=== PATIENT | male | born 1935 | race Two or more races ===

== ENCOUNTER 2018-09-01 17:10 | Inpatient (IN) | payer MEDICARE, MEDICAID ==
[~2018-09-01] VITALS: Ht 172.7 cm; Wt 42.6 kg
[2018-09-01] MEDS ORDERED: SODIUM CHLORIDE 0.9% 1,000 ML IV ONE (17:44)
[2018-09-01 18:47] LABS: CHLORIDE 110 mEq/L (98-107)
[2018-09-01 18:48] LABS: PROTHROMBIN TIME 10.7 sec (9.6-11.0)
[2018-09-01 18:50] LABS: BASOPHILS % 0.1 % (0.0-2.0); EOSINOPHILS % 0.3 % (0.0-5.0); HEMOGLOBIN. 11.3 g/dL (14.0-18.0); LYMPHOCYTES % 16.4 % (20.0-50.0); MEAN CORPUSCULAR HEMOGLOBIN 28.2 pg (28.0-32.0); MEAN CORPUSCULAR VOLUME 85.2 fL (80.0-94.0); MEAN PLATELET VOLUME 8.6 fl (7.4-10.4); MONOCYTES % 9.2 % (2.0-8.0); PLATELET 319 x1000/uL (130-400); RED BLOOD CELL COUNT 3.99 mill/uL (4.7-6.1); RED CELL DISTRIBUTION WIDTH 16.1 % (11.6-14.6)
[2018-09-01] MEDS ORDERED: VANCOMYCIN 1 G PREMIX 200 ML IV NR (19:15)
[2018-09-01] MEDS ORDERED: SODIUM CHLORIDE 0.9% 1000ML BAG (SEPSIS BOLUS) IV NR (19:15)
[2018-09-01] MEDS ORDERED: PIPERACILLIN/TAZ 3.375G PREMIX 50 ML IV NR (19:15)
[2018-09-01 21:03] LABS: CLARITY URINE CLEAR (CLEAR); COLOR URINE YELLOW (YELLOW); KETONES URINE NEGATIVE (NEGATIVE); LEUKOCYTE ESTERASE URINE NEGATIVE (NEGATIVE); NITRITE URINE NEGATIVE (NEGATIVE); OCCULT BLOOD URINE NEGATIVE (NEGATIVE); PROTEIN URINE 1+ (NEGATIVE); SPECIFIC GRAVITY URINE 1.022 (1.005-1.030)
[2018-09-01 23:06] VITALS: BP 136/71
[2018-09-02] VITALS: BP 128/68
[2018-09-02] MEDS ORDERED: IPRATROPIUM/ALBUTEROL 0.5-3(2.5)MG/3ML NEB HHN PRN (00:30)
[2018-09-02] MEDS ORDERED: ACETAMINOPHEN 325MG TABLET PO PRN (00:30)
[2018-09-02] MEDS ORDERED: CLONIDINE 0.1MG TABLET PO PRN (00:30)
[2018-09-02] MEDS: PIPERACILLIN/TAZ 2.25G PREMIX 50 ML IV SCH ×4 (02:20→19:55)
[2018-09-02] MEDS: DEXT 5%/0.45% NACL 1000ML 1,000 ML IV SCH ×2 (02:20→14:24)
[2018-09-02 04:07] VITALS: BP 133/59
[2018-09-02] MEDS ORDERED: PIPERACILLIN/TAZOBACTAM 3.375GM/50ML PREMIX IV SCH (06:00)
[2018-09-02 06:03] LABS: BASOPHILS % 0.2 % (0.0-2.0); EOSINOPHILS % 0.7 % (0.0-5.0); HEMATOCRIT. 30.3 % (42.0-52.0); LYMPHOCYTES % 12.6 % (20.0-50.0); MEAN CORPUSCULAR HEMOGLOBIN 28.4 pg (28.0-32.0); MEAN CORPUSCULAR VOLUME 85.9 fL (80.0-94.0); MEAN PLATELET VOLUME 8.6 fl (7.4-10.4); MONOCYTES % 8.3 % (2.0-8.0); NEUTROPHILS % 78.2 % (40.0-76.0); PLATELET 278 x1000/uL (130-400); RED BLOOD CELL COUNT 3.53 mill/uL (4.7-6.1); RED CELL DISTRIBUTION WIDTH 16.5 % (11.6-14.6)
[2018-09-02 06:32] LABS: CHLORIDE 113 mEq/L (98-107)
[2018-09-02] MEDS ORDERED: PANTOPRAZOLE 40MG DR TABLET PO SCH (06:45)
[2018-09-02 08:00] VITALS: BP 139/65
[2018-09-02] MEDS: ENOXAPARIN 40MG/0.4ML SYR SUBCUT SCH (08:14)
[2018-09-02 12:00] VITALS: BP 110/49
[2018-09-02] MEDS: VANCOMYCIN 1 G PREMIX 200 ML IV SCH (12:06)
[2018-09-02 14:52] LABS: BG BASE EXCESS -4.9 mmol/L (-2.0-2.0); BG CARBOXYHEMOGLOBIN 0.3 % (0.5-1.5); BG DEOXYHEMOGLOBIN 4.6 % (0.0-5.0); BG HCO3 ACT 18.5 mmol/L (22.0-26.0); BG METHEMOGLOBIN 0.2 % (0.0-1.5); BG OXYGEN SATURATION 95.4 % (92.0-98.5); BG OXYHEMOGLOBIN 94.9 % (94.0-97.0); BG PCO2 28.9 mmHg (35.0-45.0); BG PH 7.424 (7.350-7.450); BG PO2 79.3 mmHg (75.0-100.0); BG SAMPLE SITE RIGHT RADIAL; BG TOTAL HEMOGLOBIN 10.5 g/dL (12.0-18.0); BG VENT MODE ROOM AIR
[2018-09-02 16:00] VITALS: BP 121/55
[2018-09-02] MEDS ORDERED: ONDANSETRON HCL 4MG/2ML INJ IV PRN (16:00)
[2018-09-02] MEDS ORDERED: MORPHINE SULFATE 4 MG/ML CPJ (NOT FOR IM USE) IV PRN (16:00)
[2018-09-02 20:00] VITALS: BP 174/81
[2018-09-02] MEDS: HYDRALAZINE 20MG/ML VIAL IV PRN (20:03)
[2018-09-03] VITALS: BP 143/59
[2018-09-03] MEDS: PIPERACILLIN/TAZ 2.25G PREMIX 50 ML IV SCH ×4 (01:02→21:15)
[2018-09-03] MEDS: DEXT 5%/0.45% NACL 1000ML 1,000 ML IV SCH ×2 (03:33→17:09)
[2018-09-03 04:00] VITALS: BP 153/59
[2018-09-03] MEDS: VANCOMYCIN 1 G PREMIX 200 ML IV SCH ×2 (05:03→23:50)
[2018-09-03 07:27] LABS: HEMATOCRIT. 30.7 % (42.0-52.0); HEMOGLOBIN. 10.5 g/dL (14.0-18.0); MEAN CORPUSCULAR HEMOGLOBIN 28.5 pg (28.0-32.0); MEAN CORPUSCULAR VOLUME 83.6 fL (80.0-94.0); MEAN PLATELET VOLUME 8.2 fl (7.4-10.4); PLATELET 295 x1000/uL (130-400); RED BLOOD CELL COUNT 3.67 mill/uL (4.7-6.1); RED CELL DISTRIBUTION WIDTH 15.9 % (11.6-14.6)
[2018-09-03 07:38] LABS: CHLORIDE 110 mEq/L (98-107)
[2018-09-03 08:00] VITALS: BP 153/91
[2018-09-03] MEDS: FAMOTIDINE 20MG/2ML VIAL IV SCH (08:33)
[2018-09-03] MEDS: ENOXAPARIN 40MG/0.4ML SYR SUBCUT SCH (08:33)
[2018-09-03] MEDS ORDERED: PANTOPRAZOLE SODIUM 40 MG/VIAL IV SCH (09:00)
[2018-09-03 10:37] LABS: PLATELET ESTIMATE NORMAL
[2018-09-03 12:00] VITALS: BP 159/61
[2018-09-03] MEDS ORDERED: POTASSIUM CHLORIDE INJ 40 MEQ in DEXT 5% WATER 250 ML IV NR (14:30)
[2018-09-03 15:22] LABS: BG BASE EXCESS -1.2 mmol/L (-2.0-2.0); BG CARBOXYHEMOGLOBIN 0.3 % (0.5-1.5); BG DEOXYHEMOGLOBIN 4.6 % (0.0-5.0); BG FRACTION INSPIRED OXYGEN 21; BG HCO3 ACT 21.3 mmol/L (22.0-26.0); BG OXYGEN SATURATION 95.4 % (92.0-98.5); BG OXYHEMOGLOBIN 95.1 % (94.0-97.0); BG PCO2 28.7 mmHg (35.0-45.0); BG PH 7.488 (7.350-7.450); BG PO2 75.4 mmHg (75.0-100.0); BG SAMPLE SITE RIGHT BRACHIAL; BG TOTAL HEMOGLOBIN 11.4 g/dL (12.0-18.0); BG VENT MODE ROOM AIR
[2018-09-03 16:00] VITALS: BP 157/91
[2018-09-03 20:00] VITALS: BP 144/80
[2018-09-04] VITALS: BP_SYST 156; BP_SYST 56; BP_DIAS 87
[2018-09-04] MEDS: PIPERACILLIN/TAZ 2.25G PREMIX 50 ML IV SCH ×4 (02:08→20:31)
[2018-09-04 04:00] VITALS: BP 148/55
[2018-09-04 04:55] LABS: CHLORIDE 105 mEq/L (98-107)
[2018-09-04 04:56] LABS: PROTHROMBIN TIME 10.6 sec (9.6-11.0)
[2018-09-04 05:31] LABS: HEMATOCRIT. 32.7 % (42.0-52.0); HEMOGLOBIN. 11.2 g/dL (14.0-18.0); MEAN CORPUSCULAR HEMOGLOBIN 28.1 pg (28.0-32.0); MEAN CORPUSCULAR VOLUME 82.3 fL (80.0-94.0); MEAN PLATELET VOLUME 8.2 fl (7.4-10.4); PLATELET 313 x1000/uL (130-400); RED BLOOD CELL COUNT 3.97 mill/uL (4.7-6.1); RED CELL DISTRIBUTION WIDTH 15.4 % (11.6-14.6)
[2018-09-04] MEDS: DEXT 5%/0.45% NACL 1000ML 1,000 ML IV SCH (06:34)
[2018-09-04 08:00] VITALS: BP 147/62
[2018-09-04] MEDS: FAMOTIDINE 20MG/2ML VIAL IV SCH (08:51)
[2018-09-04] MEDS: IPRATROPIUM/ALBUTEROL 0.5-3(2.5)MG/3ML NEB HHN SCH ×3 (09:59→20:43)
[2018-09-04] MEDS: BUDESONIDE 0.5MG/2ML NEB HHN SCH ×2 (09:59→20:43)
[2018-09-04] MEDS ORDERED: MIDAZOLAM HCL 5 MG/5 ML VIAL ONE (11:22)
[2018-09-04] MEDS ORDERED: FENTANYL CITRATE/PF 50MCG/ML 2ML VIAL ONE (11:23)
[2018-09-04] MEDS ORDERED: MIDAZOLAM HCL 2 MG/2 ML VIAL IV PRN (11:24)
[2018-09-04] MEDS ORDERED: HYDRALAZINE 20MG/ML VIAL ONE (11:56)
[2018-09-04] MEDS: HYDRALAZINE 20MG/ML VIAL IV PRN (11:58)
[2018-09-04 12:00] VITALS: BP 111/84
[2018-09-04] MEDS ORDERED: SIMETHICONE 40 MG/0.6 ML 30ML ONE (12:56)
[2018-09-04] MEDS ORDERED: BACTERIOSTATIC SODIUM CHLORIDE 0.9% 30ML VIAL IJ ONE (12:56)
[2018-09-04] MEDS ORDERED: OMEPRAZOLE 20MG CAPSULE EXTENDED RELEASE PO SCH (13:00)
[2018-09-04 14:14] LABS: PLATELET ESTIMATE NORMAL
[2018-09-04 16:00] VITALS: BP 105/60
[2018-09-04] MEDS: LANSOPRAZOLE 30MG DR CAPSULE GT SCH (16:02)
[2018-09-04] MEDS: METOCLOPRAMIDE HCL 10MG/2ML VIAL IV SCH ×2 (18:02→23:42)
[2018-09-04 20:00] VITALS: BP 131/71
[2018-09-04] MEDS: VANCOMYCIN 750 MG PREMIX 150 ML IV SCH (20:32)
[2018-09-05] VITALS (7 sets, daily range): BP systolic 105–150; BP diastolic 45–74
[2018-09-05] MEDS: PIPERACILLIN/TAZ 2.25G PREMIX 50 ML IV SCH ×4 (01:03→21:17)
[2018-09-05] MEDS: IPRATROPIUM/ALBUTEROL 0.5-3(2.5)MG/3ML NEB HHN SCH ×4 (01:29→21:03)
[2018-09-05] MEDS: LANSOPRAZOLE 30MG DR CAPSULE GT SCH (05:57)
[2018-09-05] MEDS: METOCLOPRAMIDE HCL 10MG/2ML VIAL IV SCH ×3 (05:57→18:20)
[2018-09-05] MEDS: BUDESONIDE 0.5MG/2ML NEB HHN SCH ×2 (08:48→21:07)
[2018-09-05] MEDS: FAMOTIDINE 20MG/2ML VIAL IV SCH (09:19)
[2018-09-05 13:01] LABS: CHLORIDE 106 mEq/L (98-107)
[2018-09-05 13:03] LABS: HEMATOCRIT. 27.3 % (42.0-52.0); HEMOGLOBIN. 9.4 g/dL (14.0-18.0); MEAN CORPUSCULAR HEMOGLOBIN 28.3 pg (28.0-32.0); PLATELET 310 x1000/uL (130-400); RED BLOOD CELL COUNT 3.33 mill/uL (4.7-6.1); RED CELL DISTRIBUTION WIDTH 15.5 % (11.6-14.6)
[2018-09-05] MEDS ORDERED: POTASSIUM CHLORIDE 20MEQ/PACKET GT NR (13:45)
[2018-09-05] MEDS: VANCOMYCIN 750 MG PREMIX 150 ML IV SCH (16:11)
[2018-09-05 16:43] LABS: PLATELET ESTIMATE NORMAL
[2018-09-05] MEDS ORDERED: POTASSIUM CHLORIDE 20MEQ/PACKET PO SCH (18:00)
[2018-09-05] MEDS ORDERED: BUDESONIDE 0.5MG/2ML NEB ONE (21:06)
== END 2018-09-05 23:14 | DRG 177 ==
LOC: ER 17:31 → 5WST 19:57 → EDBEDREQ 20:15 → EDBEDREQSVC 20:15 → EDBEDREQTM 20:15 → ENRESERV 21:29
PROVIDERS: ADMIT Internal Medicine; ATTEND Internal Medicine
PROC: 0DB68ZX Excision of Stomach, Via Natural or Artificial Opening Endoscopic, Diagnostic (ICD-10-PCS; principal; 2018-09-04)
PROC: 0DH63UZ Insertion of Feeding Device into Stomach, Percutaneous Approach (ICD-10-PCS; 2018-09-04)
DX: J69.0 Pneumonitis due to inhalation of food and vomit (principal); E43 Unspecified severe protein-calorie malnutrition; G93.40 Encephalopathy, unspecified; E87.1 Hypo-osmolality and hyponatremia; Z68.1 Body mass index [BMI] 19.9 or less, adult; E86.0 Dehydration; D64.9 Anemia, unspecified; F03.90 Unspecified dementia, unspecified severity, without behavioral disturbance, psychotic disturbance, mood disturbance, and anxiety; I10 Essential (primary) hypertension; R62.7 Adult failure to thrive; R13.10 Dysphagia, unspecified; E87.6 Hypokalemia; K29.70 Gastritis, unspecified, without bleeding; K29.80 Duodenitis without bleeding; K44.9 Diaphragmatic hernia without obstruction or gangrene; R73.9 Hyperglycemia, unspecified; R74.0 Nonspecific elevation of levels of transaminase and lactic acid dehydrogenase [LDH]; E87.8 Other disorders of electrolyte and fluid balance, not elsewhere classified; J44.9 Chronic obstructive pulmonary disease, unspecified; Z86.73 Personal history of transient ischemic attack (TIA), and cerebral infarction without residual deficits
CPT/HCPCS: 36415; 36600; 71045; 76700; 80048; 80202; 82375; 82378; 82805; 83605; 83880; 84132; 84145; 84484; 88305; 88313; 92610; 93005; 93970; 97162; 99291; J0360; J1650; J2250; J2543; J2765; J3010; J3370; J3480; J3490; J7030; J7050; J7060; J7620; J7626